=== PATIENT | female | born 2000 | race Caucasian/White ===

== ENCOUNTER → 2020-06-01 05:28 | Outpatient (CLI) | payer OTHER, BC, SELFPAY ==
[2020-06-01 19:34] LABS: SARS-CoV-2 RNA PCR Negative
== END ==
PROVIDERS: PCP Pediatrics; Visit Provider Internal Medicine Gastroenterology
DX: Z01.812 Encounter for preprocedural laboratory examination (principal); Z20.822 Contact with and (suspected) exposure to COVID-19
CPT/HCPCS: C9803; U0003; U0005

== ENCOUNTER 2020-06-05 01:32 | Day surgery (SDC) | payer OTHER, BC, SELFPAY ==
[2020-05-22 16:17] VITALS: BMI 24.5
--- NOTE | 2020-06-05 10:54 | WPDGICN ---
GI Consult Note Consult date/time: 06/05/20 10:54 HPI: Reason for visit EGD and colonoscopy. This very pleasant lady seen in consultation request of the primary physician. Impression: GERD. Rectal bleeding. This may be perianal in origin. Underlying inflammatory bowel disease needs to be excluded. She does have alternating constipation diarrhea which is compatible with underlying IBS. She has a family history of Crohn's disease. ADD. Anxiety/depression. Recommendation: EGD and colonoscopy. History: This very pleasant lady's here for EGD and colonoscopy. She does have a history of reflux disease. Since beginning omeprazole her symptoms have improved. she reported approximately 7 days of bright red blood per rectum. Her bowel habits tend to be 1 of alternating constipation and diarrhea. The patient's father had Crohn's disease. Fever, chills and night sweats at night. She reports occasional canker sores. She is here for evaluation. Physical examination: General: very pleasant patient in no acute distress. HEENT: Head was normocephalic sclerae is clear mouth without masses neck was supple. Heart: Rate rhythm regular without S3 or S4. Lungs: CTA. Abdomen: Soft with no guarding or rigidity. Bowel sounds were active. Neurologic: Cranial nerves 2 through 12 intact. No focal defects. No clonus. Musculoskeletal system: Revealed no joint tenderness or swelling no muscle atrophy. Extremities: Reveal no significant edema. Skin: Warm and dry with normal turgor. Mental status: intact. Patient is alert and oriented. Review of Systems Review of Systems: All systems reviewed & are unremarkable except as noted in HPI and below PMFSH Social History Social History Years smoked: 1.5 Smoking status: Light tobacco smoker Tobacco type: e-cigarettes/vaping Substance use: never Substance use type: does not use Living arrangements: with friend(s) Spiritual care concerns: No Meds Home Medications and Allergies Home Medications Medication Instructions Recorded Confirmed Type lisdexamfetamine [Vyvanse] 60 mg PO DAILY 05/22/20 05/22/20 History norethindrone-e.estradiol-iron [Lo 1 tablet PO HS 05/22/20 05/22/20 History Loestrin Fe] omeprazole 40 mg PO DAILY 05/22/20 05/22/20 History sertraline 50 mg PO HS 05/22/20 05/22/20 History Allergies Allergy/AdvReac Type Severity Reaction Status Date / Time No Known Allergies Allergy Unverified 05/22/20 16:18
--- NOTE | 2020-06-05 10:56 | WPDANESEPPF ---
Anes - Initial Pre Proc Eval Procedure: Operation Date: 06/05/20 12:00 Proposed Procedures p Esophagogastroduodenoscopy & Colonoscopy - Roland Braxton DO Date/Time: 06/05/20 10:56 Surgeon: Roland Braxton DO Pre Op Diagnosis: Bright Red Blood Per Rectum, GERD Patient Data Age: 20 Gender: F Height: 5 ft 6 in Weight: 69 kg Allergies Allergy/AdvReac Type Severity Reaction Status Date / Time No Known Allergies Allergy Unverified 05/22/20 16:18 Home Medications Medication Instructions Recorded Confirmed Type lisdexamfetamine [Vyvanse] 60 mg PO DAILY 05/22/20 05/22/20 History norethindrone-e.estradiol-iron [Lo 1 tablet PO HS 05/22/20 05/22/20 History Loestrin Fe] omeprazole 40 mg PO DAILY 05/22/20 05/22/20 History sertraline 50 mg PO HS 05/22/20 05/22/20 History Patient hx anesthesia problems: none Family hx anesthesia problems: none [facility] Social History Social History Years smoked: 1.5 Smoking status: Light tobacco smoker Tobacco type: e-cigarettes/vaping Substance use: never Substance use type: does not use Living arrangements: with friend(s) Spiritual care concerns: No Anes - Eval Final PreProcedure Day of Procedure 06/05/20 10:56 Patient weight: normal Heart: regular rate and rhythm Lungs: clear to auscultation Airway: Mallampati scale class 1 Neurological: alert and oriented Last oral intake: >/= 8 hours ASA classification: II Emergent: no Anesthetic plan: proceed Anesthesia type and monitoring: general GIVS and standard monitoring Informed Consent: The patient's anesthetic plan and its attendant risks and benefits were discussed with the patient/family/POA. Questions were solicited and answers provided to the satisfaction of the patient/family/POA.
[2020-06-05 11:02] VITALS: BP 99/57; PULSE 99; RESP 18; TEMP 37.1; O2SAT 98; BMI 24.3
[2020-06-05] MEDS: LACTATED RINGERS 1,000 ML 150 ML IV CONT (11:11)
[2020-06-05 11:50] VITALS: BP 82/46; PULSE 82; RESP 21; O2SAT 100
[2020-06-05 12:00] VITALS: BP 87/52; PULSE 65; RESP 19; O2SAT 100
[2020-06-05 12:10] VITALS: BP 101/73; PULSE 61; RESP 19; O2SAT 100
== END 2020-06-05 12:34 | disposition home or self-care (01) ==
PROVIDERS: PCP Pediatrics; Visit Provider Internal Medicine Gastroenterology
PROC: 0DJ08ZZ Inspection of Upper Intestinal Tract, Via Natural or Artificial Opening Endoscopic (ICD-10-PCS; CPT 43235; principal; 2020-06-05 12:00)
DX: R19.4 Change in bowel habit (principal); K62.5 Hemorrhage of anus and rectum; Z83.79 Family history of other diseases of the digestive system; K64.4 Residual hemorrhoidal skin tags; K21.9 Gastro-esophageal reflux disease without esophagitis; F41.8 Other specified anxiety disorders; F17.290 Nicotine dependence, other tobacco product, uncomplicated
CPT/HCPCS: 45380; 87081; 88305; C9803; J2704; J7120; U0003; U0005